=== PATIENT | male | born 1965 | race Caucasian/White ===

== ENCOUNTER → 2020-06-27 | Outpatient (CLI) | payer MEDICARE, MEDICAID ==
[2020-06-27 23:30] LABS: CALCIUM 10.8 mg/dL (8.4-10.5); CARBON DIOXIDE 31.7 mmol/L (20.0-32); MEAN CORP HGB 29.3 pg (26-34); RED CELL DISTRIBUTION WIDTH 13.5 % (11.5-14.5)
== END | disposition home or self-care (01) ==
LOC: NPLAB 22:50
PROVIDERS: ATTEND Internal Medicine
DX: E11.9 Type 2 diabetes mellitus without complications (principal); R11.12 Projectile vomiting; D64.9 Anemia, unspecified; G10 Huntington's disease
CPT/HCPCS: 36415; 80053; 83036; 85027; 87804

== ENCOUNTER → 2021-01-27 | Outpatient (CLI) | payer MEDICARE, MEDICAID ==
[2021-01-27 12:26] LABS: MEAN CORP HGB 29.4 pg (26-34); RED CELL DISTRIBUTION WIDTH 13.4 % (11.5-14.5)
[2021-01-27 12:33] LABS: BILIRUBIN,URINE SMALL (NEGATIVE); UA COLOR RED
[2021-01-27 17:40] LABS: CALCIUM 9.1 mg/dL (8.4-10.5); CARBON DIOXIDE 22.1 mmol/L (20.0-32)
== END | disposition home or self-care (01) ==
LOC: NPLAB 11:46
PROVIDERS: ATTEND Internal Medicine
DX: E11.9 Type 2 diabetes mellitus without complications (principal); N39.0 Urinary tract infection, site not specified; R13.12 Dysphagia, oropharyngeal phase; G10 Huntington's disease
CPT/HCPCS: 36415; 80053; 81003; 85027; 87077; 87086; 87186

== ENCOUNTER → 2022-07-13 | Outpatient (CLI) | payer SELFPAY ==
[2022-07-13 14:14] LABS: BILIRUBIN,URINE NEGATIVE (NEGATIVE); UROBILINOGEN,URINE 0.2 E.U./dL (0.2)
== END | disposition home or self-care (01) ==
LOC: NPLAB 12:08
PROVIDERS: ATTEND Internal Medicine
DX: N39.0 Urinary tract infection, site not specified (principal)
CPT/HCPCS: 81003; 87086

== ENCOUNTER → 2022-11-01 | Outpatient (CLI) | payer MEDICARE, MEDICAID ==
[2022-11-01 12:23] LABS: MEAN CORP HGB 29.7 pg (26-34); RED CELL DISTRIBUTION WIDTH 13.9 % (11.5-14.5)
[2022-11-01 12:25] LABS: BILIRUBIN,URINE 1+ (NEGATIVE)
[2022-11-01 12:34] LABS: CARBON DIOXIDE 27.1 mmol/L (20.0-32)
== END | disposition home or self-care (01) ==
LOC: NPLAB 12:06
PROVIDERS: ATTEND Internal Medicine
DX: N39.0 Urinary tract infection, site not specified (principal); E86.0 Dehydration
CPT/HCPCS: 36415; 80053; 81001; 85027; 87086